=== PATIENT | female | born 1950 | race Caucasian/White ===

== ENCOUNTER → 2018-10-21 | Outpatient (CLI) | payer MEDICARE ==
[2018-10-21 11:26] LABS: HEMATOCRIT 34.1 % (37.0-47.0); HEMOGLOBIN 11.1 g/dl (12.0-16.0); MEAN CORPUSCULAR HGB 37.1 pg (27.0-31.0); MEAN CORPUSCULAR HGB CONC 32.6 g/dl (33.0-37.0); MEAN PLATELET VOLUME 10.1 fl (9.6-12.3); PLATELET COUNT AUTOMATED 142 10*3/uL (130-400); RED BLOOD COUNT 2.99 10*6/uL (4.10-5.10); RED CELL DISTRI WIDTH 16.8 % (0-14.5); WHITE BLOOD COUNT 4.1 10*3/uL (4.8-10.8)
[2018-10-21 11:51] LABS: BASOPHILS 1 % (0-1); BURR CELLS MODERATE; PLATELET SUFFICIENCY NORMAL (NORMAL); POLYCHROMASIA SLIGHT; SCHISTOCYTES FEW; TARGET CELLS FEW; TOTAL CELLS COUNTED 100 #CELLS
== END | disposition home or self-care (01) ==
LOC: LAB 10:49
PROVIDERS: Physician Assistant
DX: C90.00 Multiple myeloma not having achieved remission (principal)

== ENCOUNTER 2020-05-07 11:24 | Emergency (ER) | payer MEDICARE ==
[~2020-05-07] VITALS: Wt 52.2 kg
[2020-05-07] MEDS ORDERED: PREDNISONE50 MG PO (12:07)
== END 2020-05-07 12:21 | disposition home or self-care (01) ==
LOC: ED 11:24
DX: T78.40XA Allergy, unspecified, initial encounter (principal); F17.200 Nicotine dependence, unspecified, uncomplicated; X58.XXXA Exposure to other specified factors, initial encounter

== ENCOUNTER 2020-12-02 04:48 | Inpatient (IN) | payer MEDICARE ==
[~2020-12-02] VITALS: Ht 149.8 cm; Wt 50.8 kg
[~2020-12-02 04:48] MED LIST: PREDNISONE50 MG PO
[2020-12-02] MEDS ORDERED: DECADRON4 MG PO (05:06)
[2020-12-02] MEDS ORDERED: POMALYST PO (05:06)
[2020-12-02] MEDS ORDERED: VALACYCLOVIR500 M1 PO (05:07)
[2020-12-02] MEDS ORDERED: DULOXETINE HCL60 MG PO (05:07)
[2020-12-02 05:08] VITALS: BP 133/70
[2020-12-02 05:42] LABS: ALBUMIN 3.2 gm/dl (3.1-4.5); ALKALINE PHOSPHATASE 58 U/L (45-117); BUN 17 mg/dl (7-24); CHLORIDE 104 mmol/L (98-107); CREATININE 0.76 mg/dL (0.55-1.02); POTASSIUM 3.6 mmol/L (3.5-5.1); SGOT/AST 16 IU/L (3-35); SGPT/ALT 17 U/L (12-78); SODIUM 138 mmol/L (136-145); TOTAL PROTEIN 6.8 gm/dL (6.4-8.2)
[2020-12-02 05:48] LABS: HEMATOCRIT 37.2 % (37.0-47.0); MEAN CELL VOLUME 113.4 fl (81.0-99.0); MEAN CORPUSCULAR HGB 37.5 pg (27.0-31.0); MEAN CORPUSCULAR HGB CONC 33.1 g/dl (33.0-37.0); MEAN PLATELET VOLUME 9.6 fl (9.6-12.3); PLATELET COUNT AUTOMATED 233 10*3/uL (130-400); RED BLOOD COUNT 3.28 10*6/uL (4.10-5.10); RED CELL DISTRI WIDTH 15.4 % (0-14.5); WHITE BLOOD COUNT 9.1 10*3/uL (4.8-10.8)
[2020-12-02 05:50] LABS: TROPONIN I < 0.015 ng/ml (<0.045)
[2020-12-02 06:43] LABS: ACANTHOCYTES MODERATE; ATYPICAL LYMPHS 1 % (0-0); BASOPHILS 1 % (0-1); PLATELET SUFFICIENCY NORMAL (NORMAL); TOTAL CELLS COUNTED 100 #CELLS
[2020-12-02 06:50] LABS: ACT PARTIAL THROMBO TIME 35.4 SECONDS (20.0-32.1)
[2020-12-02 07:30] VITALS: BP 158/98
[2020-12-02 12:04] VITALS: BP 142/62
[2020-12-02 16:08] VITALS: BP 148/64
[2020-12-02 20:15] VITALS: BP 90/41
[2020-12-02 23:54] VITALS: BP 94/45
[2020-12-03 02:30] VITALS: BP 117/54
[2020-12-03 05:20] LABS: ALBUMIN 2.9 gm/dl (3.1-4.5); BUN 25 mg/dl (7-24); CHLORIDE 107 mmol/L (98-107); CHOLESTEROL 185 mg/dL (<200); CREATININE 0.85 mg/dL (0.55-1.02); POTASSIUM 3.8 mmol/L (3.5-5.1); SGOT/AST 10 IU/L (3-35); SGPT/ALT 16 U/L (12-78); SODIUM 141 mmol/L (136-145); TRIGLYCERIDES 86 mg/dl (<150)
[2020-12-03 05:27] LABS: ALKALINE PHOSPHATASE 58 U/L (45-117); FREE T4 1.12 ng/dl (0.76-1.46); LDL CHOLESTEROL 103 mg/dL (9-159); THYROID STIM HORMONE (HS) 0.557 uIU/ml (0.358-4.75); TOTAL PROTEIN 6.8 gm/dL (6.4-8.2)
[2020-12-03 06:09] LABS: HEMATOCRIT 35.7 % (37.0-47.0); MEAN CELL VOLUME 113.3 fl (81.0-99.0); MEAN CORPUSCULAR HGB 36.5 pg (27.0-31.0); MEAN CORPUSCULAR HGB CONC 32.2 g/dl (33.0-37.0); MEAN PLATELET VOLUME 10.1 fl (9.6-12.3); PLATELET COUNT AUTOMATED 212 10*3/uL (130-400); RED BLOOD COUNT 3.15 10*6/uL (4.10-5.10); RED CELL DISTRI WIDTH 15.3 % (0-14.5); WHITE BLOOD COUNT 9.3 10*3/uL (4.8-10.8)
[2020-12-03 06:37] VITALS: BP 112/53
[2020-12-03 07:58] LABS: PLATELET SUFFICIENCY NORMAL (NORMAL); TOTAL CELLS COUNTED 100 #CELLS
[2020-12-03 08:02] LABS: VITAMIN D, 25-HYDROXY 65.2 ng/mL (30-100)
[2020-12-03 08:08] VITALS: BP 128/72
[2020-12-03 16:58] VITALS: BP 126/70
[2020-12-03 20:13] VITALS: BP 117/54
[2020-12-04 07:23] VITALS: BP 139/70
[2020-12-04 08:31] VITALS: BP 123/63
[2020-12-04] MEDS ORDERED: NEURONTIN300 MG PO (11:01)
[2020-12-04] MEDS ORDERED: ERGOCALCIFEROL1 GM PO (11:02)
[2020-12-04] MEDS ORDERED: FLONASE ALLERG9.9 ML NAS (11:02)
[2020-12-04] MEDS ORDERED: ASPIRIN81 M1 PO (11:03)
[2020-12-04] MEDS ORDERED: B-121000 MCG PO (11:03)
[2020-12-04 12:30] VITALS: BP 120/56
[2020-12-04 16:34] VITALS: BP 110/55
[2020-12-04 18:57] VITALS: BP 102/51
[2020-12-05] VITALS: BP 140/77
[2020-12-05 06:25] VITALS: BP 128/72
[2020-12-05 12:00] VITALS: BP 128/72
[2020-12-05] MEDS ORDERED: DOXYCYCLINE HY100 M3 PO (14:29)
[2020-12-05] MEDS ORDERED: PREDNISONE20 M1 PO (14:29)
[2020-12-05 16:00] VITALS: BP 128/72
== END 2020-12-05 16:44 | disposition home or self-care (01) | DRG 193 ==
LOC: ED 04:48 → EDHOLD 08:39
PROVIDERS: Emergency Medicine; Registered Nurse; ADMIT Family Medicine; ATTEND Family Medicine
DX: J18.9 Pneumonia, unspecified organism (principal); J96.01 Acute respiratory failure with hypoxia; J44.1 Chronic obstructive pulmonary disease with (acute) exacerbation; E44.0 Moderate protein-calorie malnutrition; C90.00 Multiple myeloma not having achieved remission; J44.0 Chronic obstructive pulmonary disease with (acute) lower respiratory infection; D53.9 Nutritional anemia, unspecified; F17.210 Nicotine dependence, cigarettes, uncomplicated; R73.9 Hyperglycemia, unspecified; J20.9 Acute bronchitis, unspecified; Z82.0 Family history of epilepsy and other diseases of the nervous system; Z79.899 Other long term (current) drug therapy; Z68.22 Body mass index [BMI] 22.0-22.9, adult

== ENCOUNTER → 2020-12-26 | Outpatient (CLI) | payer MEDICARE ==
[~2020-12-26] MED LIST changes: +ASPIRIN81 M1 PO; +B-121000 MCG PO; +DECADRON4 MG PO; +DOXYCYCLINE HY100 M3 PO; +DULOXETINE HCL60 MG PO; +ERGOCALCIFEROL1 GM PO; +FLONASE ALLERG9.9 ML NAS; +NEURONTIN300 MG PO; +POMALYST PO; +PREDNISONE20 M1 PO; +VALACYCLOVIR500 M1 PO
[2020-12-26 12:37] LABS: HEMATOCRIT 34.4 % (37.0-47.0); MEAN CELL VOLUME 115.4 fl (81.0-99.0); MEAN CORPUSCULAR HGB 37.6 pg (27.0-31.0); MEAN CORPUSCULAR HGB CONC 32.6 g/dl (33.0-37.0); PLATELET COUNT AUTOMATED 290 10*3/uL (130-400); RED BLOOD COUNT 2.98 10*6/uL (4.10-5.10); RED CELL DISTRI WIDTH 15.8 % (0-14.5); WHITE BLOOD COUNT 5.4 10*3/uL (4.8-10.8)
[2020-12-26 12:54] LABS: ALBUMIN 3.4 gm/dl (3.1-4.5); ALKALINE PHOSPHATASE 68 U/L (45-117); BUN 15 mg/dl (7-24); CHLORIDE 110 mmol/L (98-107); CREATININE 0.82 mg/dL (0.55-1.02); POTASSIUM 4.6 mmol/L (3.5-5.1); SGOT/AST 11 IU/L (3-35); SGPT/ALT 16 U/L (12-78); SODIUM 139 mmol/L (136-145); TOTAL PROTEIN 6.6 gm/dL (6.4-8.2)
[2020-12-26 13:06] LABS: ACANTHOCYTES FEW; BURR CELLS FEW; OVALOCYTES FEW; PLATELET SUFFICIENCY NORMAL (NORMAL); POLYCHROMASIA SLIGHT; SCHISTOCYTES FEW; TOTAL CELLS COUNTED 100 #CELLS
== END | disposition home or self-care (01) ==
LOC: LAB 12:04
PROVIDERS: ATTEND Registered Nurse
DX: C90.00 Multiple myeloma not having achieved remission (principal)

== ENCOUNTER → 2022-01-16 | Outpatient (CLI) | payer MEDICARE ==
[2022-01-16 11:15] LABS: TOTAL PROTEIN 6.4 gm/dL (6.4-8.2)
[2022-01-16 11:53] LABS: VITAMIN D, 25-HYDROXY 78.6 ng/mL (30-100)
[2022-01-20 09:04] LABS: METHYLMALONIC ACID 193 nmol/L (0-378)
== END | disposition home or self-care (01) ==
LOC: LAB 10:25
PROVIDERS: ATTEND Family Medicine
DX: E78.5 Hyperlipidemia, unspecified (principal); E55.9 Vitamin D deficiency, unspecified; E53.8 Deficiency of other specified B group vitamins

== ENCOUNTER → 2022-05-13 | Outpatient (CLI) | payer MEDICARE ==
[2022-05-13 10:10] LABS: BASO # 0.1 10*3/uL (0.0-0.1); BASO % 1.2 % (0.0-1.0); EOS % 0.2 % (1.0-4.0); HEMATOCRIT 36.2 % (37.0-47.0); LYMPH # 0.6 10*3/uL (1.3-4.4); LYMPH % 13.3 % (27.0-41.0); MEAN CELL VOLUME 106.8 fl (81.0-99.0); MEAN CORPUSCULAR HGB 36.3 pg (27.0-31.0); MEAN PLATELET VOLUME 9.2 fl (9.6-12.3); MONO # 0.5 10*3/uL (0.1-1.0); MONO % 10.8 % (3.0-9.0); NEUT # 3.1 10*3/uL (2.3-7.9); NEUT % 74.3 % (47.0-73.0); PLATELET COUNT AUTOMATED 274 10*3/uL (130-400); RED BLOOD COUNT 3.39 10*6/uL (4.10-5.10); RED CELL DISTRI WIDTH 15.9 % (0-14.5); WHITE BLOOD COUNT 4.2 10*3/uL (4.8-10.8)
== END | disposition home or self-care (01) ==
LOC: LAB 09:51
PROVIDERS: ATTEND Nurse Practitioner
DX: C90.02 Multiple myeloma in relapse (principal)

== ENCOUNTER → 2024-05-14 | Outpatient (CLI) | payer MEDICARE ==
[2024-05-14 11:49] LABS: VITAMIN D, 25-HYDROXY 95.2 ng/mL (30-100)
== END | disposition home or self-care (01) ==
LOC: LAB 10:29
PROVIDERS: ATTEND Family Medicine
DX: E03.9 Hypothyroidism, unspecified (principal); E53.8 Deficiency of other specified B group vitamins; E78.5 Hyperlipidemia, unspecified; E55.9 Vitamin D deficiency, unspecified